=== PATIENT | male | born 1985 | race Caucasian/White ===

== ENCOUNTER 2019-09-25 20:56 | Emergency (ER) | payer OTHER ==
[2019-09-25 21:22] VITALS: BP 155/76; PULSE 55; RESP 18; TEMP 97.9
[2019-09-25] MEDS ORDERED: PROPARACAINE 0.5% OPHTH DROPS 15 ML BTL LEFT EYE STA (21:29)
[2019-09-25] MEDS ORDERED: DIPH,PERTUS(ACELL)TETVAC-LF 0.5 ML VIAL IM ONE (21:29)
[2019-09-25] MEDS ORDERED: FLUORESCEIN STRIPS 1 MG STRIP RIGHT EYE ONE (22:06)
[2019-09-25] MEDS ORDERED: ERYTHROMYCIN 5 MG/GM OPHTH OINT 3.5 GM TUBE RIGHT EYE STA (22:24)
--- NOTE | 2019-09-25 22:33 | ED ---
General Adult HPI <AjayAmbrosio grant - Last Filed: 09/25/19 23:45> - General Source: patient, RN notes reviewed, old records reviewed Mode of arrival: ambulatory Limitations: no limitations <Cosme Junior - Last Filed: 09/26/19 01:19> - General Chief complaint: Eye Problems Stated complaint: FB eye Time Seen by Provider: 09/25/19 21:25 - History of Present Illness Initial comments: 33-year-old male patient no pertinent past history presents to ED for evaluation of possible foreign body in left eye. Patient reports that he was using a machined parts metal sprayer yesterday did not feel anything happened the time however later that night noticed that there was a small piece of metal approximately 9:00 in his ey e that he is having some localized discomfort. Patient did try to flush it without success. Reports that when his eye becomes irritated and watery there is some mild blurring but states that otherwise his vision is at baseline. Up-to-date on tetanus. Not a contact lens user. Systemic: Pt denies fatigue, fever/chills, rash. Pt denies weakness, night sweats, weight loss. Neuro: Pt denies headache, visual disturbances, syncope or pre-syncope. HEENT: Pt denies ocular discharge or irritation, otalgia, rhinorrhea, pharyngitis or notable lymphadenopathy. Cardiopulmonary: Pt denies chest pain, SOB, heart palpitations, dyspnea on exertion. Abdominal/GI: Pt denies abdominal pain, n/v/d. : Pt denies dysuria, burning w/ urination, frequency/urgency. Denies new onset urinary or bowel incontinence. MSK: Pt denies myalgia, loss of strength or function in extremities. Neuro: Pt denies new onset weakness, paresthesias. (Cosme Junior) - Related Data Previous Rx's Medication Instructions Recorded Erythromycin Ophth Oint [Romycin 1 applic LEFT EYE QID 5 Days #1 09/25/19 Ophth Oint] tube Allergies Allergy/AdvReac Type Severity Reaction Status Date / Time No Known Allergies Allergy Verified 03/26/15 10:36 Review of Systems ROS Other: All systems not noted in ROS Statement are negative. <FranAmbrosio - Last Filed: 09/25/19 23:45> ROS Other: All systems not noted in ROS Statement are negative. <Csome Junior - Last Filed: 09/26/19 01:19> ROS Statement: Those systems with pertinent positive or pertinent negative responses have been documented in the HPI. Past Medical History Past Medical History: No Reported History History of Any Multi-Drug Resistant Organisms: None Reported Past Surgical History: No Surgical Hx Reported Past Psychological History: No Psychological Hx Reported Smoking Status: Current every day smoker Past Alcohol Use History: None Reported Past Drug Use History: None Reported <Cosme Junior - Last Filed: 09/26/19 01:19> General Exam Limitations: no limitations <Cosme Junior - Last Filed: 09/26/19 01:19> - General Exam Comments Initial Comments: Constitutional: NAD, AOX3, Pt has pleasant affect. HEENT: NC/AT, trachea midline, neck supple, no lymphadenopathy. Posterior pharynx non erythematous, without exudates. External ears appear normal, without discharge. Mucous membranes moist. Eyes PERRLA, EOM intact. There is no scleral icterus. No pallor noted. Intraocular pressure average of 12 bilaterally. Small foreign body noted at approximately 9:00. This was initially unsuccessfully removed with a Q-tip and 18-gauge needle. Patient does report t hat after I left the room the foreign body came free. Cardiopulmonary: RRR, no murmurs, rubs or gallops, no JVD noted. Lungs CTAB in anterior and posterior carmona. No peripheral edema. Abdominal exam: Abdomen soft and non-distended. Abdomen non-tender to palpation in all 4 quadrants. Bowel sounds active in LLQ. No hepatosplenomegaly. No ecchymosis Neuro: CN II-XII grossly intact. No nuchal rigidity. No raccon eyes, no bernstein sign, no hemotympanum. No cervical spinal tenderness. MSK: No posterior calf tenderness bilaterally, homans sign negative bilaterally. Posterior tibialis and radial pulse +2 bilaterally. Sensation intact in upper and lower extremities. Full active ROM in upper and lower extremities, 5/5 stregnth. (Cosme Junior) Course Vital Signs 09/25/19 21:18 Temperature 97.9 F Pulse Rate 55 L Respiratory 18 Rate Blood Pressure 155/76 O2 Sat by Pulse 98 Oximetry Medical Decision Making <Ambrosio Peters - Last Filed: 05/03/20 23:45> <Cosme Junior - Last Filed: 09/26/19 01:19> - Medical Decision Making I saw this patient in conjunction with the physician culinary assistant. I performed independent history and physical exam. Agree with case management. At my exam, the patient's foreign body has been removed. There is a rust ring remaining at approximately the 10:30 position of the cornea. It is not overlying the central vision. I did attempt removal with the Maryellen brush burn under slit lamp magnification, but the patient is not able to tolerate the procedure. He does continue to flinch. I was not able to remove any significant portion of the rust ring. I discussed further attempts, but at this point the patient is preferring to follow with ophthalmology. We discussed appropriate further care and follow-up as well as return parameters. (Ambrosio Peters) 33-year-old male patient no pertinent past history presents to ED for evaluation of possible foreign body in left eye. Patient reports that he was using a machined parts metal sprayer yesterday did not feel anything happened the time however later that night noticed that there was a small piece of metal approximately 9:00 in his eye that he is having some localized discomfort. Patient did try to flush it without success. Reports that when his eye becomes irritated and watery there is some mild blurring but states that otherwise his vision is at baseline. Up-to-date on tetanus. Not a contact lens user. Pt VSS, afebrile. Physical exam displayed: Small foreign body noted at approximately 9:00. This was initially unsuccessfully removed with a Q-tip and 18-gauge needle. Patient does report that after I left the room the foreign body came free. There was a small rust ring which was partially removed by Dr. Lock. Patient discharged with erythromycin and will follow with crematorium operator tomorrow. Pt will also follow up with PCP in 1-2 days.Return to ER if condition worsens. Case discussed with Dr. Arteaga. (Cosme Junior) Disposition <Ambrosio Peters - Last Filed: 09/25/19 23:45> Is patient prescribed a controlled substance at d/c from ED?: No <Cosme Junior - Last Filed: 09/26/19 01:19> Clinical Impression: Foreign body of right eye Disposition: HOME SELF-CARE Condition: Stable Instructions (If sedation given, give patient instructions): Eye Foreign Body (ED) Additional Instructions: Follow-up with crematorium operator tomorrow. Take antibiotics as directed. Return to ER if condition worsens in any way. Prescriptions: Erythromycin Ophth Oint [Romycin Ophth Oint] 1 applic LEFT EYE QID 5 Days #1 tube Referrals: None,Stated [Primary Care Provider] - 1-2 days Dayton Molina MD [STAFF PHYSICIAN] - 1-2 days
== END 2019-09-25 23:59 | disposition home or self-care (01) ==
LOC: EC 20:56
DX: T15.92XA Foreign body on external eye, part unspecified, left eye, initial encounter (principal); F17.200 Nicotine dependence, unspecified, uncomplicated
CPT/HCPCS: 65220; 99283